=== PATIENT | female | born 1960 | race American Indian/Alaskan Native ===

== ENCOUNTER 2021-09-01 09:01 | Outpatient (CLI) | payer BC ==
--- NOTE | 2021-09-01 13:41 | Ultrasound Report ---
ULTRASOUND ABDOMEN, COMPLETE INDICATION / CLINICAL INFORMATION: UNSPECIFIED ABDOMINAL PAIN R10.9. COMPARISON: None available. FINDINGS: PANCREAS: No significant abnormality. ABDOMINAL AORTA: No significant abnormality. IVC: No significant abnormality. LIVER: The liver is normal in measuring 14.6 cm . No evidence of focal hepatic lesion. Normal hepatop edal blood flow within the main portal vein. GALLBLADDER: No significant abnormality. BILE DUCTS: No significant abnormality. Common bile duct measures 4 mm. KIDNEYS: Right: The right kidney measures 9.7 cm. The lower pole is not well visualized due to overly ing bowel gas. Left: The left kidney measures 10.5 cm. No significant abnormality. SPLEEN: The spleen measures 7.6 cm. No significant abnormality. FREE FLUID: None. ADDITIONAL FINDINGS: None. IMPRESSION: 1. No significant sonographic abnormality of the abdomen. Scribed by: Emilia Parish RDMS, RVT, RMSKS Scribed: 09/01/2021 9:54 AM I have reviewed the images, agree with this report, and edited this report as needed. Signer Name: Jon Lam MD Signed: 09/01/2021 1:36 PM Workstation Name: [id number]
--- NOTE | 2021-09-01 13:44 | Ultrasound Report ---
ULTRASOUND PELVIS INDICATION / CLINICAL INFORMATION: UNSPECIFIED PELVIC PAIN. TECHNIQUE: Transabdominal and Transvaginal. Duplex Color Doppler used: Yes. COMPARISON: None available FINDINGS: UTERUS: Surgically absent. RIGHT ADNEXA: The right ovary measures 1.1 x 0.7 x 0.7 cm. No significant ovarian cyst or mass. Saumya l color Doppler blood flow. LEFT ADNEXA: The left ovary measures 1.1 x 0.8 x 0.5 cm. No significant ovarian cyst or mass. Normal color Doppler blood flow. URINARY BLADDER: No significant abnormality. FREE FLUID: None. ADDITIONAL FINDINGS: None. IMPRESSION: 1. Prior hysterectomy. 2. No significant sonographic abnormality. Scribed by: Emilia Parish RDMS, LUIT, ARLYN Scribed: 09/01/2021 9:51 AM I have reviewed the images, agree with this report, and edited this report as needed. Signer Name: Jon Lam MD Signed: 09/01/2021 1:39 PM Workstation Name: [id number]
== END 2021-09-01 09:02 | disposition home or self-care (01) ==
LOC: US 09:01
PROVIDERS: ATTEND Internal Medicine
DX: R10.9 Unspecified abdominal pain (principal); Z90.710 Acquired absence of both cervix and uterus
CPT/HCPCS: 76700; 76830; 76856